=== PATIENT | female | born 2000 | race Caucasian/White ===

== ENCOUNTER 2022-09-22 08:15 | Emergency (ER) | payer BC, SELFPAY ==
[2022-09-22 08:25] VITALS: BP 220/122; PULSE 120; TEMP 35.9; O2SAT 98; BMI 30.1
--- NOTE | 2022-09-22 08:39 | CRLHL7_ITS ---
For Patients: As a result of the Cures Act, medical imaging exams and procedure reports are released immediately into your electronic medical record. You may view this report before your referring provider. If you have questions, please contact your health care provider. HISTORY: Fall. Pain. TECHNIQUE: Three views of the left ankle. COMPARISON: No prior. FINDINGS: There is soft tissue swelling overlying the lateral malleolus. There is no acute fracture or widening of the ankle mortise. Joint spaces are maintained. No radiopaque foreign body or soft tissue gas. IMPRESSION: 1. Soft tissue swelling. 2. No acute fracture or malalignment. Dictated by Jose Steward MD @ 09/22/2022 10:01:01 AM Dictated by: Jose Steward MD @ 09/22/2022 10:01:08 (Electronically Signed)
--- NOTE | 2022-09-22 08:51 | ED_ITS ---
HPI - General Adult General Chief complaint: Extremity Pain/Injury, Lower Stated complaint: Injured LT ankle Time Seen by Provider: 09/22/22 08:36 Source: patient Limitations: no limitations History of Present Illness HPI narrative: Generally healthy 21-year-old female coming in today after spraining her ankle last night while she was out dancing. She states that she was dancing and jumping and felt her ankle twist. She was unable to walk afterwards. She had to be taken home and she presents this morning for evaluation. Patient is on hydroxyzine and sertraline. Denies any other medication. Is not on any control. Blood pressure is quite elevated on presentation today, patient states that her blood pressure generally runs 130 systolic. Related Data Home Medications Medication Instructions Recorded Confirmed hydroxyzine HCl .ROUTE 09/22/22 sertraline .ROUTE 09/22/22 Allergies Allergy/AdvReac Type Severity Reaction Status Date / Time amoxicillin Allergy Unknown Verified 09/22/22 08:28 oxycodone Allergy Unknown Verified 09/22/22 08:28 Review of Systems Status of ROS: Reports: 10 or more systems reviewed and unremarkable except as noted in History and below PFSH PFS Social History Smoking Status: Never smoker How often do you have a drink containing alcohol: never How often do you have six or more drinks on one occasion: Never AUDIT-C Alcohol total score: 0 Non-prescribed substance use: denies use Exam Narrative: Exam Narrative: Well-nourished well-developed patient in no acute distress. Alert and oriented. Answers questions appropriately. Mood and affect are appropriate. Thoughts are goal oriented and rational. No tangential or magical thinking noted. Patient speaks in full sentences without needing to catch her breath. Speech is not slurred or pressured. HEENT: Normocephalic atraumatic. Pupils are equally round reactive to light. Extraocular muscles are intact. Conjunctivae are moist without any icterus noted. Moist mucous membranes. Extremities: Bilateral lower extremities are without edema. Normal DP and PT pulses. Feet have normal color and temperature. Patient has swelling over the lateral malleolus of the left lower extremity. She has no acute tenderness di rectly over the lateral malleolus. She has good range of motion at the ankle of flexion, extension, eversion and inversion. Skin: Well perfused without any obvious rashes. Const: Vital Signs, click to edit/add: Vital Signs - 24 hr 09/22/22 08:25 09/22/22 08:54 Temperature 96.7 F L Pulse Rate [Pulse Oximeter] 120 H Blood Pressure [Ri ght Upper Arm] 220/122 H 158/88 H Pulse Oximetry 98 Oxygen Delivery Me thod Room Air Course Course Hospital Course: X-ray of the ankle was done, read by me, does not show any acute bony pathology. Vital Signs Vital signs: Initial Vital Signs Temperature 96.7 F L 09/22/22 08:25 Temperature Source Temporal Artery Scan 09/22/22 08:25 Pulse Rate 120 H 09/22/22 08:25 Blood Pressure 220/122 H 09/22/22 08:25 Blood Pressure Mean 154 09/22/22 08:25 Blood Pressure Position Sitting 09/22/22 08:25 Pulse Oximetry 98 09/22/22 08:25 Oxygen Delivery Method Room Air 09/22/22 08:25 Vital Signs Temperature 96.7 F L 09/22/22 08:25 Pulse Rate 120 H 09/22/22 08:25 Blood Pressure 220/122 H 09/22/22 08:25 Pulse Oximetry 98 09/22/22 08:25 Oxygen Delivery Method Room Air 09/22/22 08:25 Temperature 96.7 F L 09/22/22 08:25 Pulse Rate 120 H 09/22/22 08:25 Blood Pressure 158/88 H 09/22/22 08:54 Pulse Oximetry 98 09/22/22 08:25 Oxygen Delivery Method Room Air 09/22/22 08:25 Medical Decision Making MDM Narrative Medical decision making narrative: Sprained ankle. We discussed symptomatic measures. Patient was given an air splint. We discussed follow-up. Patient was agreeable and had no other questions. Imaging Data Ankle x-ray: Attestation: I have reviewed the pertinent imaging results. Radiologist's impression: Three views of the left ankle. COMPARISON: No prior. FINDINGS: There is soft tissue swelling overlying the lateral malleolus. There is no acute fracture or widening of the ankle mortise. Joint spaces are maintained. No radiopaque foreign body or soft tissue gas. IMPRESSION: 1. Soft tissue swelling. 2. No acute fracture or malalignment. Discharge Plan Discharge Clinical Impression: Ankle sprain and strain Patient Disposition: Home, Self-Care Condition: Stable Additional Instructions: Ice, rest and elevate the ankle today. Ice for 20 minutes at a time, 3 to 4 times a day. Do not apply ice directly to skin. Activity as tolerated. Okay to use splint as needed. Follow-up with your primary care provider in 1 week if you feel like you are not improving. Prescriptions: No Action sertraline .ROUTE hydroxyzine HCl .ROUTE Follow Up/Referrals: Provider,Not a Local [Primary Care Provider] - Stand Alone Forms: [employer] Info Instructions
[2022-09-22 08:54] VITALS: BP 158/88
[2022-09-22 10:34] VITALS: BP 163/95; PULSE 75; O2SAT 100
--- NOTE | 2022-09-22 10:43 | ED.NURSE ---
Pt provided with crutches and crutch education. Pt tolerates crutch use well.
== END 2022-09-22 10:46 | disposition home or self-care (01) ==
PROVIDERS: Emergency Provider Family Medicine
DX: S93.402A Sprain of unspecified ligament of left ankle, initial encounter (principal); Y93.41 Activity, dancing
CPT/HCPCS: 73610; 99283; 99284